=== PATIENT | male | born 1975 | race Caucasian/White ===

== ENCOUNTER 2019-02-16 15:15 | Emergency (ER) | payer OTHER, SELFPAY ==
[2019-02-16 15:21] VITALS: BP 156/97; PULSE 100; RESP 18; TEMP 37.6; O2SAT 95; BMI 31.6
--- NOTE | 2019-02-16 15:37 | DI.RAD.S_ITS ---
PROCEDURE: XR CHEST 1V INDICATIONS: chest pain TECHNIQUE: One view of the chest was acquired. COMPARISON: None. FINDINGS: Surgical changes and devices: None. Lungs and pleura: An incomplete inspiratory result is noted, causing a crowded appearance to the lung markings. No focal infiltrates are seen. There is blunting of the costophrenic angles seen. Mild, streaky opacities are seen at the lung bases. Mediastinum: Mediastinal contours appear normal. Heart size is normal. Bones and chest wall: No suspicious bony lesions. Overlying soft tissues appear unremarkable. IMPRESSION: Low lung volumes, with likely atelectasis at the lung bases. Dictated by: Gerson Curry M.D. on 02/16/2019 at 15:08 Approved by: Gerson Curry M.D. on 02/16/2019 at 15:09
[2019-02-16 15:52] LABS: Prothrombin Time 12.1 SECONDS (10.1-12.7)
[2019-02-16 15:53] LABS: Add Manual Diff / Slide Review NO; Basophils Absolute Auto 0 /uL (0-100); Basophils Percent Auto 0.3 % (0-2); Eosinophils Absolute Auto 0 /uL (0-450); Eosinophils Percent Auto 0.5 % (2-4); Hematocrit 43.9 % (41-53); Hemoglobin 15.1 g/dL (13.5-17.5); Lymphocytes Absolute Auto 1100 /uL (1100-4500); Lymphocytes Percent Auto 12.8 % (25-40); Mean Corpuscular HGB Conc 34.3 % (30-36); Mean Corpuscular Hemoglobin 28.1 PG (26-34); Mean Corpuscular Volume 81.9 fL (80-100); Monocytes Absolute Auto 800 /uL (0-900); Monocytes Percent Auto 9.9 % (3-14); Neutrophils Absolute Auto 6400 /uL (1500-7000); Neutrophils Percent Auto 76.5 % (50-75); Platelet Count 170 X10^3/uL (150-400); Red Blood Cell Count 5.36 X10^6/uL (4.5-5.9); Red Cell Distribution Width 12.6 % (11.6-14.8); White Blood Cell Count 8.4 X10^3/uL (4.5-11.0)
[2019-02-16 15:54] LABS: PTT Partial Thromboplastin Tim 31 SECONDS (26.4-36.2)
[2019-02-16 16:00] LABS: Alanine Aminotransferase 32 IU/L (21-72); Albumin 4.1 g/dL (3.5-5.0); Albumin Globulin Ratio 1.1 (1.0-2.8); Alkaline Phosphatase 98 U/L (38-126); Aspartate Aminotransferase 25 IU/L (17-59); Bilirubin Total 0.7 mg/dL (0.2-1.3); Blood Urea Nitrogen 11 mg/dL (9-20); Calcium 9.4 mg/dL (8.4-10.2); Carbon Dioxide 31 mmol/L (22-32); Chloride 100 mmol/L (98-107); Creatine Kinase 58 U/L (55-170); Estimated Glomerular Filt Rate > 60.0 mL/min (>60); Globulin 3.9 g/dL (1.7-4.1); Glucose 128 mg/dL (70-100); HEMOLYSIS < 15 (0-50); Lipase 79 U/L (23-300); Potassium 3.4 mmol/L (3.4-5.1); Sodium 138 mmol/L (137-145)
--- NOTE | 2019-02-16 16:08 | DI.RAD.S_ITS ---
PROCEDURE: XR RIBS LT 2V INDICATIONS: Left rib pain with palp, px on inhalation TECHNIQUE: 3 views of the left ribs were acquired. COMPARISON: [facility], CR, XR CHEST 1V, 02/16/2019, 15:46. FINDINGS: Surgical changes and devices: None. Bones and chest wall: No fractures or dislocations. No suspicious bony lesions. Overlying soft tissues appear unremarkable. Lungs and pleura: The visualized lung appears clear. No pleural effusions or pneumothorax are visible. IMPRESSION: No displaced rib fractures are seen. Negative for pneumothorax. Dictated by: Gerson Curry M.D. on 02/16/2019 at 15:58 Approved by: Gerson Curry M.D. on 02/16/2019 at 15:59
[2019-02-16 16:12] LABS: Troponin I < 0.012 ng/mL (0.01-0.034)
[2019-02-16 16:14] VITALS: BP 134/82; PULSE 93; RESP 16; O2SAT 94
--- NOTE | 2019-02-16 16:15 | ED.CHESTPAIN ---
HPI - Chest Pain <IMMANUEL Osman - Last Filed: 02/16/19 21:44> General Chief Complaint: Chest Pain Stated Complaint: poss broken ribs/sob Time Seen by Provider: 02/16/19 15:43 Source: patient Mode of arrival: ambulatory Limitations: no limitations History of Present Illness HPI narrative: 43-year-old healthy male presents emergency department today complaining of a left lower rib pain. He states the pain is a sharp stabbing 10/10 pain that is worse with deep inhalation, coughing, or moving. Patient reports that 3 days ago he believes that he got food poisoning from coffee Creamer, he states he was finally vomiting for a few hours and developed a fever of 102 F. After this, his symptoms resolved but he noticed that he had chest soreness which developed into sharp pain that he presents to the emergency department with today. He states his fever has decreased and has been consistently around 99 F for the past few days. He denies any dizziness, syncope, chest pressure, shortness of breath, abdominal pain, nausea, vomiting, diarrhea, or known trauma. Patient denies IV drug use. Related Data Previous Rx's Medication Instructions Recorded methocarbamol 500 mg PO TID #10 tab 02/16/19 Allergies Allergy/AdvReac Type Severity Reaction Status Date / Time codeine Allergy Verified 02/16/19 15:21 Review of Systems <IMMANUEL Osman - Last Filed: 02/16/19 21:44> Review of Systems Narrative: REVIEW OF SYSTEMS: GENERAL: Reports past fever, see HPI. HENT: No head trauma, hearing loss or sore throat. EYES: No loss of vision, double vision, eye pain, or irritation. CARDIOVASCULAR: Reports left-sided rib pain, see HPI. RESPIRATORY: No shortness of breath or cough. GASTROINTESTINAL: No reports nausea and vomiting a few days ago, see HPI. GENITOURINARY: No flank pain or dysuria. MUSCULOSKELETAL: No pain, weakness, or deformities. INTEGUMENTARY: No rash, lesions, or pruritus. NEURO: No numbness, tingling, memory loss, or confusion. PSYCH: No behavior or mood changes. PFSH <IMMANUEL Osman - Last Filed: 02/16/19 21:44> Medical History No significant medical problems (Acute) Social History Smoking Status: Never smoker Social History Smoking Status: Never smoker Exam <IMMANUEL Osman - Last Filed: 02/16/19 21:44> Initial Vital Signs Initial Vital Signs: Vital Signs Temperature 99.6 F 02/16/19 15:21 Pulse Rate 100 H 02/16/19 15:21 Respiratory Rate 18 02/16/19 15:21 Blood Pressure 156/97 H 02/16/19 15:21 Pulse Oximetry 95 02/16/19 15:21 PHYSICAL EXAMINATION: GENERAL: Well groomed, alert, and cooperative. Answers questions promptly and appropriately. Vital signs noted. HENT: Normocephalic, atraumatic. Ear canals patent. Oral mucosa is pink and moist. EYES: Conjunctiva pink, sclera white, no periorbital swelling. NECK: No cervical spinal tenderness. Full range of motion. CHEST: Normal to inspection and without deformities. Significant tenderness produced with palpation of lower left ribs both anterior and posteriorly. CARDIOVASCULAR: S1 and S2 sounds normal. Regular rate and rhythm, no murmurs, clicks, or bruits. No pedal edema. RESPIRATORY: Normal respiratory rate, trachea midline, airway patent. No stridor, nasal flaring or accessory muscle use. Lungs are clear in all silva without wheeze, rhonchi, or crackles. GASTROINTESTINAL: Bowel sounds normoactive. Abdomen is soft and non-tender. No organomegaly. MUSCULOSKELETAL: Normal gait and coordination. Equal tone and mass bilaterally. No spinal tenderness. EXTREMITIES: CMS intact. Moves all extremities. SKIN: Warm, dry, soft, appropriate color for ethnicity. No lesions, rashes, or wounds. NEURO: Alert and Oriented X 3. Good coordination. No ataxia, or sensory deficits, or cognitive issues. PSYCH: Appropriate affect and mood. <Heladio Leigh DO - Last Filed: 02/17/19 07:21> Initial Vital Signs Initial Vital Signs: Vital Signs Temperature 99.6 F 02/16/19 15:21 Pulse Rate 100 H 02/16/19 15:21 Respiratory Rate 18 02/16/19 15:21 Blood Pressure 156/97 H 02/16/19 15:21 Pulse Oximetry 95 02/16/19 15:21 Course <Luh IMMANUEL Nichols - Last Filed: 02/16/19 21:44> Course Course Narrative: Patient was given Toradol for pain, he reported he felt slightly better after administration of medication but the pain was still significant. Orders Ordered: Discontinued Medications Diazepam (Valium) 5 mg IV NOW ONE Stop: 02/16/19 17:15 Last Admin: 02/16/19 17:23 Dose: 5 mg Documented by: KASSIE Sodium Chloride (Normal Saline 0.9%) 1,000 mls @ 1,000 mls/hr IV BOLUS ONE Stop: 02/16/19 17:07 Last Infusion: 02/16/19 17:59 Dose: 0 mls/hr Documented by: Admin: 02/16/19 16:56 Dose: 1,000 mls/hr Documented by: KASSIE Ketorolac Tromethamine (Toradol) 30 mg IV NOW ONE Stop: 02/16/19 16:09 Last Admin: 02/16/19 16:56 Dose: 30 mg Documented by: KASSIE Consultations Consultation #1: Patient staffed with Dr. Leigh. Vital Signs Vital signs: Vital Signs - 8 hr 02/16/19 15:21 02/16/19 16:14 02/16/19 17:03 Temperature 99.6 F Pulse Rate 100 H 93 H 98 H Respiratory Rate 18 16 20 Blood Pressure 156/97 H Blood Pressure [Left Arm] 134/82 136/81 Pulse Oximetry 95 94 94 02/16/19 17:56 Temperature Pulse Rate 93 H Respiratory Rate 18 Blood Pressure Blood Pressure [Left Arm] 130/78 Pulse Oximetry 98 <Heladio Leigh DO - Last Filed: 02/17/19 07:21> Orders Ordered: Discontinued Medications Diazepam (Valium) 5 mg IV NOW ONE Stop: 02/16/19 17:15 Last Admin: 02/16/19 17:23 Dose: 5 mg Documented by: KASSIE Sodium Chloride (Normal Saline 0.9%) 1,000 mls @ 1,000 mls/hr IV BOLUS ONE Stop: 02/16/19 17:07 Last Infusion: 02/16/19 17:59 Dose: 0 mls/hr Documented by: Admin: 02/16/19 16:56 Dose: 1,000 mls/hr Documented by: KASSIE Ketorolac Tromethamine (Toradol) 30 mg IV NOW ONE Stop: 02/16/19 16:09 Last Admin: 02/16/19 16:56 Dose: 30 mg Documented by: KASSIE Vital Signs Vital signs: Vital Signs - 8 hr 02/16/19 15:21 02/16/19 16:14 02/16/19 17:03 Temperature 99.6 F Pulse Rate 100 H 93 H 98 H Respiratory Rate 18 16 20 Blood Pressure 156/97 H Blood Pressure [Left Arm] 134/82 136/81 Pulse Oximetry 95 94 94 02/16/19 17:56 Temperature Pulse Rate 93 H Respiratory Rate 18 Blood Pressure Blood Pressure [Left Arm] 130/78 Pulse Oximetry 98 MDM - Chest Pain <IMMANUEL Osman - Last Filed: 02/16/19 21:44> Medical Records Data Attestation: I reviewed the patient's medical records. Lab Data Attestation: I reviewed the patient's lab results. Result diagrams: 02/16/19 15:33 02/16/19 15:33 Labs: Lab Results 02/16/19 02/16/19 02/16/19 Range/Units 15:33 15:33 15:33 WBC 8.4 (4.5-11.0) X10^3/uL RBC 5.36 (4.5-5.9) X10^6/uL Hgb 15.1 (13.5-17.5) g/dL Hct 43.9 (41-53) % MCV 81.9 (80-100) fL MCH 28.1 (26-34) PG MCHC 34.3 (30-36) % RDW 12.6 (11.6-14.8) % Plt Count 170 (150-400) X10^3/uL Neut % (Auto) 76.5 H (50-75) % Lymph % (Auto) 12.8 L (25-40) % [place] % (Auto) 9.9 (3-14) % Eos % (Auto) 0.5 L (2-4) % Baso % (Auto) 0.3 (0-2) % Neut # (Auto) 6400 (2424-1389) /uL Lymph # (Auto) 1100 (6495-1408) /uL [place] # (Auto) 800 (0-900) /uL Eos # (Auto) 0 (0-450) /uL Baso # (Auto) 0 (0-100) /uL PT 12.1 (10.1-12.7) SECONDS INR 1.0 (0.9-1.3) APTT 31 (26.4-36.2) SECONDS Sodium 138 (137-145) mmol/L Potassium 3.4 (3.4-5.1) mmol/L Chloride 100 (98-107) mmol/L Carbon Dioxide 31 (22-32) mmol/L BUN 11 (9-20) mg/dL Creatinine 1.10 (0.66-1.25) mg/dL Estimated GFR > 60.0 (>60) mL/min BUN/Creatinine Ratio 10.0 (6-22) Glucose 128 H (70-100) mg/dL Calcium 9.4 (8.4-10.2) mg/dL Total Bilirubin 0.7 (0.2-1.3) mg/dL AST 25 (17-59) IU/L ALT 32 (21-72) IU/L Alkaline Phosphatase 98 (38-126) U/L Total Creatine Kinase 58 (55-170) U/L CK-MB (CK-2) TNP CK-MB (CK-2) Rel Index TNP Troponin I < 0.012 (0.01-0.034) ng/mL Total Protein 8.0 (6.3-8.2) g/dL Albumin 4.1 (3.5-5.0) g/dL Globulin 3.9 (1.7-4.1) g/dL Albumin/Globulin Ratio 1.1 (1.0-2.8) Lipase 79 (23-300) U/L Imaging Data Chest x-ray: Radiologist's impression: [facility] [address] [place] [id number] XRay Report Signed Patient: Felicia John#: [id number] : 1975Acct:[id number] Age/Sex: 43 / MDate of Service: 02/16/19 Loc: ED Accession Number: [id number] Procedure: XR chest 1V Ordering Provider: Heladio Leigh D.O. PROCEDURE: XR CHEST 1V INDICATIONS: chest pain TECHNIQUE: One view of the chest was acquired. COMPARISON: None. FINDINGS: Surgical changes and devices: None. Lungs and pleura: An incomplete inspiratory result is noted, causing a crowded appearance to the lung markings. No focal infiltrates are seen. There is blunting of the costophrenic angles seen. Mild, streaky opacities are seen at the lung bases. Mediastinum: Mediastinal contours appear normal. Heart size is normal. Bones and chest wall: No suspicious bony lesions. Overlying soft tissues appear unremarkable. IMPRESSION: Low lung volumes, with likely atelectasis at the lung bases. Dictated by: Gerson Curry M.D. on 02/16/2019 at 15:08 Approved by: Gerson Curry M.D. on 02/16/2019 at 1 Rib XR: My impression: [address] [address] XRay Report Signed Patient: Felicia John#: [id number] : 1975Acct:[id number] Age/Sex: 43 / MDate of Service: 02/16/19 Loc: ED Accession Number: [id number] Procedure: XR ribs LT 2V Ordering Provider: Luh Nichols PROCEDURE: XR RIBS LT 2V INDICATIONS: Left rib pain with palp, px on inhalation TECHNIQUE: 3 views of the left ribs were acquired. [facility], 15:46. FINDINGS: Surgical changes and devices: None. Bones and chest wall: No fractures or dislocations. No suspicious bony lesions. Overlying soft tissues appear unremarkable. Lungs and pleura: The visualized lung appears clear. No pleural effusions or pneumothorax are visible. IMPRESSION: No displaced rib fractures are seen. Negative for pneumothorax. Dictated by: Gerson Curry M.D. on 02/16/2019 at 15:58 Approved by: Gerson Curry M.D. on 02/16/2019 at 15:59 ECG Data Interpretation: Normal sinus rhythm, rate 92, [place] interval 143, QTC 401. No ectopy noted. No ST elevation or ST depression. T-wave inversion noted in lead 3. EKG also reviewed by Dr. Leigh. MDM Narrative Medical decision making narrative: Differential include muscle strain (most likely due to history of vomiting, reassuring lab, unremarkable EKG, chest pain does not seem of cardiac origin, pain is reproducible with palpation and deep breaths, negative x-ray for fracture or pneumonia, slight improvement of pain with administration of Toradol), rib fracture (less likely due to lack of trauma, negative x-ray), acute coronary syndrome (less likely due to negative troponin, lack of chest pressure, reassuring EKG), endocarditis (less likely due to lack of IV drug use, lack of very high fever upon presentation, lack of substernal chest pain), or pericarditis (lack of substernal chest pain, a white cell count). Strict return precautions given and follow-up instructions discussed. <Heladio Leigh DO - Last Filed: 02/17/19 07:21> Lab Data Labs: Lab Results 02/16/19 02/16/19 02/16/19 Range/Units 15:33 15:33 15:33 WBC 8.4 (4.5-11.0) X10^3/uL RBC 5.36 (4.5-5.9) X10^6/uL Hgb 15.1 (13.5-17.5) g/dL Hct 43.9 (41-53) % MCV 81.9 (80-100) fL MCH 28.1 (26-34) PG MCHC 34.3 (30-36) % RDW 12.6 (11.6-14.8) % Plt Count 170 (150-400) X10^3/uL Neut % (Auto) 76.5 H (50-75) % Lymph % (Auto) 12.8 L (25-40) % [place] % (Auto) 9.9 (3-14) % Eos % (Auto) 0.5 L (2-4) % Baso % (Auto) 0.3 (0-2) % Neut # (Auto) 6400 (3028-1408) /uL Lymph # (Auto) 1100 (1979-2207) /uL [place] # (Auto) 800 (0-900) /uL Eos # (Auto) 0 (0-450) /uL Baso # (Auto) 0 (0-100) /uL PT 12.1 (10.1-12.7) SECONDS INR 1.0 (0.9-1.3) APTT 31 (26.4-36.2) SECONDS Sodium 138 (137-145) mmol/L Potassium 3.4 (3.4-5.1) mmol/L Chloride 100 (98-107) mmol/L Carbon Dioxide 31 (22-32) mmol/L BUN 11 (9-20) mg/dL Creatinine 1.10 (0.66-1.25) mg/dL Estimated GFR > 60.0 (>60) mL/min BUN/Creatinine Ratio 10.0 (6-22) Glucose 128 H (70-100) mg/dL Calcium 9.4 (8.4-10.2) mg/dL Total Bilirubin 0.7 (0.2-1.3) mg/dL AST 25 (17-59) IU/L ALT 32 (21-72) IU/L Alkaline Phosphatase 98 (38-126) U/L Total Creatine Kinase 58 (55-170) U/L CK-MB (CK-2) TNP CK-MB (CK-2) Rel Index TNP Troponin I < 0.012 (0.01-0.034) ng/mL Total Protein 8.0 (6.3-8.2) g/dL Albumin 4.1 (3.5-5.0) g/dL Globulin 3.9 (1.7-4.1) g/dL Albumin/Globulin Ratio 1.1 (1.0-2.8) Lipase 79 (23-300) U/L Discharge Plan Departure Patient Disposition: Home Clinical Impression: Pain in rib, Muscle spasm Discharge Date/Time: 02/16/19 17:58 Instructions: DI for Muscle Spasm Activity Restrictions/Additional Instructions: Thank you for entrusting me with your care today. As discussed, her lab work was negative for any concerning findings. Your x-rays were negative for any fractures. It is possible your symptoms may be caused by muscle spasms and/or a muscle strain. I prescribed you a muscle relaxer, do not drive with this medication as it may cause sedation. You may take Tylenol or ibuprofen for pain with this. Please follow up with your primary care provider in the next week for re-evaluation. Return to the emergency department if he develops changes in chest pain, severe shortness of breath, syncope, uncontrollable vomiting, high fevers, or worsening symptoms. Prescriptions: New methocarbamol 500 mg tablet 500 mg PO TID Qty: 10 RF: 0 <Heladio Leigh DO - Last Filed: 02/17/19 07:21> Sign Out Provider Sign Out Attestation: I was available for consultation during this patient's emergency department encounter
[2019-02-16] MEDS: SODIUM CHLORIDE 0.9% 1,000 ML 1000 ML IV (16:56)
[2019-02-16] MEDS: KETOROLAC 60 MG/2 ML VIAL 30 MG IV (16:56)
[2019-02-16 17:03] VITALS: BP 136/81; PULSE 98; RESP 20; O2SAT 94
[2019-02-16] MEDS: diazePAM 10 MG/2 ML SYRINGE 5 MG IV (17:23)
[2019-02-16 17:56] VITALS: BP 130/78; PULSE 93; RESP 18; O2SAT 98
== END 2019-02-16 17:58 | disposition home or self-care (01) ==
PROVIDERS: Emergency Medicine; Emergency Provider Nurse Practitioner
DX: R07.81 Pleurodynia (principal); M62.838 Other muscle spasm
CPT/HCPCS: 36415; 36591; 71045; 71100; 80053; 82550; 83690; 84484; 85025; 85610; 85730; 93005; 93041; 96361; 96374; 96375; 99284; 99285; J1885; J3360

== ENCOUNTER 2019-02-18 12:35 | Emergency (ER) | payer OTHER, SELFPAY ==
[2019-02-18 12:41] VITALS: BP 165/106; PULSE 86; RESP 17; TEMP 37.3; O2SAT 95; BMI 31.6
--- NOTE | 2019-02-18 12:43 | ED_ITS ---
HPI - Fever General Chief Complaint: Fever Stated Complaint: still has symptoms from ER visit on sunday Time Seen by Provider: 02/18/19 12:37 Source: patient Mode of arrival: ambulatory Limitations: no limitations History of Present Illness HPI Narrative: 43-year-old male here for evaluation of continued left-sided chest discomfort causing them to not be able to take big deep breaths. He also complains of continued fevers. He was seen here in the emergency department a couple days ago for similar symptoms was sent home with muscle relaxation which he states has helped the spasms. Denies any diarrhea. All the symptoms started a couple days ago when he felt like he drank some bad Creamer in his coffee. Several hours later he developed violent vomiting. Has had 1 episode of diarrhea but nothing since then. He states that since this time he has had pinpoint left-sided chest discomfort Related Data Previous Rx's Medication Instructions Recorded methocarbamol 500 mg PO TID #10 tab 02/16/19 azithromycin See Rx Instructions .ROUTE 02/18/19 .COMPLEX #6 tab hydrocodone-acetaminophen [[place]] 1 tab PO Q4-6H PRN #14 tab 02/18/19 Allergies Allergy/AdvReac Type Severity Reaction Status Date / Time codeine Allergy Verified 02/18/19 12:41 Review of Systems Constitutional Constitutional: Reports fever(s) and Denies headache(s) ENT Ears, Nose, Mouth, and Throat: Denies headache(s) Cardiovascular Cardiovascular: Reports chest pain (Chest wall pain), Denies edema, Denies irregular heart rhythm, Denies palpitations and Reports dyspnea Respiratory Respiratory: Reports pain on inspiration and Reports dyspnea Gastrointestinal Gastrointestinal: Denies abdominal pain, Denies change in stool character, Denies nausea and Denies vomiting Integumentary/Breasts Skin/Breast: Denies lesions and Denies rash Neurologic Neurologic: Denies behavioral changes and Denies headache(s) Psychiatric Psychiatric: Denies behavioral changes Endocrine Endocrine: Denies palpitations Hematologic/Lymphatic Hematologic/Lymphatic: Denies easy bleeding and Denies easy bruising [facility] Medical History No significant medical problems (Acute) Social History Smoking Status: Never smoker Exam Initial Vital Signs Initial Vital Signs: Vital Signs Temperature 99.2 F 02/18/19 12:41 Pulse Rate 86 02/18/19 12:41 Respiratory Rate 17 02/18/19 12:41 Blood Pressure 165/106 H 02/18/19 12:41 Pulse Oximetry 95 02/18/19 12:41 Const General: cooperative, comfortable and well developed Orientation: alert and awake HENNE Head: normal to inspection and normocephalic Chest Chest: No crepitus and tenderness (Left-sided chest) Resp Effort & Inspection: normal respiratory effort Auscultation: clear to auscultation bilaterally Other: Decreased inspiratory effort Skin Lesions: no lesions Rashes: no rashes Neuro General: alert and awake Cognition: normal cognition Speech: speech normal Extrem General: normal to inspection and capillary refill normal Course Orders Ordered: ED Orders 02/18/19 12:55 XR chest 2V Stat 02/18/19 13:43 RT Consult Eval and Treat Now Vital Signs Vital signs: Vital Signs - 8 hr 02/18/19 12:41 02/18/19 13:53 Temperature 99.2 F Pulse Rate 86 79 Respiratory Rate 17 Blood Pressure 165/106 H Pulse Oximetry 95 96 MDM - Fever Imaging Data Chest x-ray: Radiologist's impression: [address] [address] XRay Report Signed Patient: Felicia John#: [id number] : 1975Acct:[id number] Age/Sex: 43 / MDate of Service: 02/18/19 Loc: ED Accession Number: [id number] Procedure: XR chest 2V Ordering Provider: Heladio Leigh D.O. PROCEDURE: XR CHEST 2V INDICATIONS: Fever and left-sided chest pain TECHNIQUE: 2 views of the chest were acquired. COMPARISON: [facility], , XR CHEST 1V, 02/16/2019, 15:46. FINDINGS: Surgical changes and devices: None. Lungs and pleura: Moderate bibasilar airspace opacity. Small bilateral pleural effusions. No pneumothorax. Mediastinum: Mediastinal contours are normal. Heart size is normal. Bones and chest wall: No suspicious bony abnormalities. Soft tissues appear unremarkable. IMPRESSION: Bibasilar pneumonia with small parapneumonic effusions. Dictated by: Suze Ferrell M.D. on 02/18/2019 at 13:22 Approved by: Suze Ferrell M.D. on 02/18/2019 at 13:23 MDM Narrative Medical decision making narrative: Patient does have pinpoint left-sided chest discomfort. I do suspect this is either costochondritis versus an intercostal muscle strain. There is also a small concern for a rib fracture given his violent vomiting however rib series done several days ago shows no signs of this. He was febrile. He is not in respiratory distress but does have a decreased inspiratory effort. His chest x-ray today is concerning for pneumonia. This does fit his clinical presentation. Will send home with antibiotics. Also sent home with pain medication to help him avoid splinting. He was given return precautions and follow-up instructions. He expressed understanding and agreement with plan. Discharge Plan Departure Patient Disposition: Home Clinical Impression: Pneumonia Qualifiers: Pneumonia type: due to unspecified organism Laterality: bilateral Lung location: lower lobe of lung Qualified Code(s): J18.1 - Lobar pneumonia, unspecified organism Instructions: DI for Pneumonia -- Adult Activity Restrictions/Additional Instructions: Take all of the medications as directed. Be sure to continue to take deep breaths like you were instructed. Contact your primary provider for a follow- up. Return to the emergency department for any new or worsening symptoms Prescriptions: New azithromycin 250 mg tablet See Rx Instructions .ROUTE .COMPLEX Qty: 6 RF: 0 hydrocodone-acetaminophen [[place]] 5-325 mg tablet 1 tab PO Q4-6H PRN (Reason: pain) Qty: 14 RF: 0 No Action methocarbamol 500 mg tablet 500 mg PO TID Qty: 10 RF: 0
--- NOTE | 2019-02-18 12:55 | DI.RAD.S_ITS ---
PROCEDURE: XR CHEST 2V INDICATIONS: Fever and left-sided chest pain TECHNIQUE: 2 views of the chest were acquired. COMPARISON: [facility], CR, XR CHEST 1V, 02/16/2019, 15:46. FINDINGS: Surgical changes and devices: None. Lungs and pleura: Moderate bibasilar airspace opacity. Small bilateral pleural effusions. No pneumothorax. Mediastinum: Mediastinal contours are normal. Heart size is normal. Bones and chest wall: No suspicious bony abnormalities. Soft tissues appear unremarkable. IMPRESSION: Bibasilar pneumonia with small parapneumonic effusions. Dictated by: Suze Ferrell M.D. on 02/18/2019 at 13:22 Approved by: Suze Ferrell M.D. on 02/18/2019 at 13:23
[2019-02-18 13:30] VITALS: BP 138/96; PULSE 79; RESP 16; O2SAT 96
[2019-02-18 13:53] VITALS: PULSE 79; O2SAT 96
[2019-02-18 14:04] VITALS: BP 146/96; PULSE 80; RESP 13
--- NOTE | 2019-02-18 14:04 | PC.NURSE ---
rt is instructions
== END 2019-02-18 14:05 | disposition home or self-care (01) ==
PROVIDERS: Emergency Provider Emergency Medicine
DX: J18.1 Lobar pneumonia, unspecified organism (principal)
CPT/HCPCS: 71046; 99282; 99283

== ENCOUNTER 2019-02-21 10:42 | Emergency (ER) | payer OTHER, SELFPAY ==
[2019-02-21 10:51] VITALS: BP 163/101; PULSE 75; RESP 24; TEMP 36.9; O2SAT 93; BMI 32.3
--- NOTE | 2019-02-21 11:15 | ED_ITS ---
HPI - Chest Pain <IMMANUEL Osman - Last Filed: 02/21/19 23:03> General Chief Complaint: Chest Pain Stated Complaint: Rib cage pain Time Seen by Provider: 02/21/19 11:00 Source: patient Mode of arrival: ambulatory Limitations: no limitations History of Present Illness HPI narrative: 43-year-old male who was recently seen in the emergency department on 02/16 for rib pain after getting when he perceived to be food poisoning and vomiting once, at that point his rib x-rays were negative and his chest x-ray was negative for pneumonia. He returned on 02/18 for re-evaluation and his chest x-ray showed pneumonia. He was given azithromycin and an incentive spirometer. Patient returns today stating that he is doing better but ran out of his muscle relaxers and is having and intermittent muscle spasms in his ribs at night and when he takes a deep breath. He states he has been taking ibuprofen, the spasms are a 5/10 sharp stabbing pain and that is better with rest and worse with movement. He states the methocarbamol helped. Patient denies any fevers the past few days, denies vomiting, abdominal pain, diarrhea, shortness of breath, cough this time (states he was coughing a lot on 02/18 and 02/19), nasal congestion, sore throat, body aches, malaise, dizziness, or syncope. Related Data Previous Rx's Medication Instructions Recorded methocarbamol 500 mg PO TID #10 tab 02/16/19 azithromycin See Rx Instructions .ROUTE 02/18/19 .COMPLEX #6 tab hydrocodone-acetaminophen [[place]] 1 tab PO Q4-6H PRN #14 tab 02/18/19 amoxicillin-pot clavulanate 1 tab PO BID 7 Days #14 tab 02/21/19 [Augmentin] hydrocodone-acetaminophen [[place]] 2 tab PO Q6H 7 Days #20 tab 02/21/19 hydroxyzine HCl 25 mg PO BEDTIME #14 tab 02/21/19 Allergies Allergy/AdvReac Type Severity Reaction Status Date / Time codeine Allergy Verified 02/18/19 12:41 Review of Systems <IMMANUEL Osman - Last Filed: 02/21/19 23:03> Review of Systems Narrative: REVIEW OF SYSTEMS: GENERAL: Denies fever or chills. HENT: No head trauma, hearing loss or sore throat. EYES: No loss of vision, double vision, eye pain, or irritation. CARDIOVASCULAR: Complains for pain, see HPI. RESPIRATORY: Complains of pain when he is taking a deep breath, see HPI. GASTROINTESTINAL: No nausea, vomiting, diarrhea, or constipation. GENITOURINARY: No flank pain or dysuria. MUSCULOSKELETAL: No pain, weakness, or deformities. INTEGUMENTARY: No rash, lesions, or pruritus. NEURO: No numbness, tingling, memory loss, or confusion. PSYCH: No behavior or mood changes. PFSH <IMMANUEL Osman - Last Filed: 02/21/19 23:03> Medical History No significant medical problems (Acute) Social History Smoking Status: Never smoker Social History Smoking Status: Never smoker Exam <IMMANUEL Osman - Last Filed: 02/21/19 23:03> Initial Vital Signs Initial Vital Signs: Vital Signs Temperature 98.4 F 02/21/19 10:51 Pulse Rate 75 02/21/19 10:51 Respiratory Rate 24 02/21/19 10:51 Blood Pressure 163/101 H 02/21/19 10:51 Pulse Oximetry 93 02/21/19 10:51 PHYSICAL EXAMINATION: GENERAL: Well groomed, alert, and cooperative. Answers questions promptly and appropriately. Vital signs noted. HENT: Normocephalic, atraumatic. Ear canals patent. Oral mucosa is pink and moist. EYES: Conjunctiva pink, sclera white, no periorbital swelling. CHEST: Normal to inspection and without deformities. CARDIOVASCULAR: S1 and S2 sounds normal. Regular rate and rhythm, no murmurs, clicks, or bruits. No pedal edema. RESPIRATORY: Normal respiratory rate, trachea midline, airway patent. No stridor, nasal flaring or accessory muscle use. Lung sounds decreased at bases, wheezing noted to left lower lobe. No crackles auscultated. Decreased wheezing after DuoNeb treatment. Patient noted to have oxygen saturation as low as 95% and is highest in present after albuterol treatment. GASTROINTESTINAL: Bowel sounds normoactive. Abdomen is soft and non-tender. No organomegaly. MUSCULOSKELETAL: Left rib fire tender to palpation. Normal gait and coordination. Equal tone and mass bilaterally. EXTREMITIES: CMS intact. Moves all extremities. SKIN: Warm, dry, soft, appropriate color for ethnicity. No lesions, rashes, or wounds. NEURO: Alert and Oriented X 3. Good coordination. No ataxia, or sensory deficits, or cognitive issues. PSYCH: Appropriate affect and mood. <Skylar Franco DO - Last Filed: 02/25/19 05:55> Initial Vital Signs Initial Vital Signs: Vital Signs Temperature 98.4 F 02/21/19 10:51 Pulse Rate 75 02/21/19 10:51 Respiratory Rate 24 02/21/19 10:51 Blood Pressure 163/101 H 02/21/19 10:51 Pulse Oximetry 93 02/21/19 10:51 Course <IMMANUEL Osman - Last Filed: 02/21/19 23:03> Course Course Narrative: Since this was the 3rd time patient presented with the same complaint, his chest x-ray was repeated but showed bibasilar densities that were inconclusive. Due to this finding and his continued pain, a CT angio was ordered, patient agreed with this plan. Orders Ordered: Discontinued Medications Hydrocodone Bitart/Acetaminophen ([place] 5/325) 2 tab PO NOW ONE Stop: 02/21/19 11:30 Last Admin: 02/21/19 11:59 Dose: 2 tab Documented by: BRAYDEN Albuterol/Ipratropium (Duoneb) 3 ml INH NOW ONE Stop: 02/21/19 11:14 Last Admin: 02/21/19 11:45 Dose: 3 ml Documented by: JELANI Sodium Chloride (Normal Saline 0.9%) 1,000 mls @ 1,000 mls/hr IV BOLUS ONE Stop: 02/21/19 13:29 Last Infusion: 02/21/19 14:20 Dose: 0 mls/hr Documented by: Admin: 02/21/19 13:12 Dose: 1,000 mls/hr Documented by: BRAYDEN Vital Signs Vital signs: Vital Signs - 8 hr 02/21/19 10:51 02/21/19 11:28 02/21/19 11:47 Temperature 98.4 F Pulse Rate 75 78 76 Respiratory Rate 24 26 H 20 Blood Pressure 163/101 H Blood Pressure [Right Arm] 139/117 H Pulse Oximetry 93 97 97 02/21/19 12:32 Temperature Pulse Rate 79 Respiratory Rate 22 Blood Pressure Blood Pressure [Right Arm] 141/92 H Pulse Oximetry 94 <Skylar Franco DO - Last Filed: 02/25/19 05:55> Orders Ordered: Discontinued Medications Hydrocodone Bitart/Acetaminophen ([place] 5/325) 2 tab PO NOW ONE Stop: 02/21/19 11:30 Last Admin: 02/21/19 11:59 Dose: 2 tab Documented by: BRAYDEN Albuterol/Ipratropium (Duoneb) 3 ml INH NOW ONE Stop: 02/21/19 11:14 Last Admin: 02/21/19 11:45 Dose: 3 ml Documented by: JELANI Sodium Chloride (Normal Saline 0.9%) 1,000 mls @ 1,000 mls/hr IV BOLUS ONE Stop: 02/21/19 13:29 Last Infusion: 02/21/19 14:20 Dose: 0 mls/hr Documented by: Admin: 02/21/19 13:12 Dose: 1,000 mls/hr Documented by: BRAYDEN Vital Signs Vital signs: Vital Signs - 8 hr 02/21/19 10:51 02/21/19 11:28 02/21/19 11:47 Temperature 98.4 F Pulse Rate 75 78 76 Respiratory Rate 24 26 H 20 Blood Pressure 163/101 H Blood Pressure [Right Arm] 139/117 H Pulse Oximetry 93 97 97 02/21/19 12:32 Temperature Pulse Rate 79 Respiratory Rate 22 Blood Pressure Blood Pressure [Right Arm] 141/92 H Pulse Oximetry 94 MDM - Chest Pain <IMMANUEL Osman - Last Filed: 02/21/19 23:03> Medical Records Data Attestation: I reviewed the patient's medical records. Lab Data Attestation: I reviewed the patient's lab results. Result diagrams: 02/21/19 11:47 02/21/19 11:47 Labs: Lab Results 02/21/19 02/21/19 Range/Units 11:47 11:47 WBC 9.2 (4.5-11.0) X10^3/uL RBC 4.81 (4.5-5.9) X10^6/uL Hgb 13.7 (13.5-17.5) g/dL Hct 38.9 L (41-53) % MCV 80.8 (80-100) fL MCH 28.4 (26-34) PG MCHC 35.2 (30-36) % RDW 12.7 (11.6-14.8) % Plt Count 311 (150-400) X10^3/uL Neut % (Auto) 67.5 (50-75) % Lymph % (Auto) 21.9 L (25-40) % [place] % (Auto) 7.8 (3-14) % Eos % (Auto) 2.0 (2-4) % Baso % (Auto) 0.8 (0-2) % Neut # (Auto) 6200 (5561-2965) /uL Lymph # (Auto) 2000 (3008-7011) /uL [place] # (Auto) 700 (0-900) /uL Eos # (Auto) 200 (0-450) /uL Baso # (Auto) 100 (0-100) /uL Sodium 139 (137-145) mmol/L Potassium 4.1 (3.4-5.1) mmol/L Chloride 103 (98-107) mmol/L Carbon Dioxide 26 (22-32) mmol/L BUN 17 (9-20) mg/dL Creatinine 0.90 (0.66-1.25) mg/dL Estimated GFR > 60.0 (>60) mL/min BUN/Creatinine Ratio 18.9 (6-22) Glucose 93 (70-100) mg/dL Calcium 9.5 (8.4-10.2) mg/dL Total Bilirubin 0.4 (0.2-1.3) mg/dL AST 23 (17-59) IU/L ALT 33 (21-72) IU/L Alkaline Phosphatase 102 (38-126) U/L Total Creatine Kinase 38 L (55-170) U/L CK-MB (CK-2) TNP CK-MB (CK-2) Rel Index TNP Troponin I < 0.012 (0.01-0.034) ng/mL Total Protein 7.9 (6.3-8.2) g/dL Albumin 4.0 (3.5-5.0) g/dL Globulin 3.9 (1.7-4.1) g/dL Albumin/Globulin Ratio 1.0 (1.0-2.8) Imaging Data Chest XR: Radiologist's impression: [address] [address] XRay Report Signed Patient: Felicia John#: [id number] : 1975Acct:[id number] Age/Sex: 43 / MDate of Service: 02/21/19 Loc: ED Accession Number: [id number] Procedure: XR chest 2V Ordering Provider: Luh Nichols PROCEDURE: XR CHEST 2V INDICATIONS: Left chest pain, h/o of pneumonia. TECHNIQUE: 2 views of the chest were acquired. COMPARISON: [facility], , XR CHEST 2V, 02/18/2019, 13:01. FINDINGS: Surgical changes and devices: None. Lungs and pleura: Mild areas of increased density are identified at the lung bases, which have a similar appearance to the previous exam and may represent eventration of the diaphragm. No large effusion or pneumothorax is evident. Mediastinum: Mediastinal contours are normal. Heart size is normal. Bones and chest wall: No suspicious bony abnormalities. Soft tissues appear unremarkable. IMPRESSION: Unchanged bibasilar densities. Please consider CT of the chest for better characterization. Dictated by: Carmelo Sheldon M.D. on 02/21/2019 at 10:45 Approved by: Carmelo Sheldon M.D. on 02/21/2019 at 10:52 CT scan - chest: Radiologist's impression: [address] [address] [address] Scan Report Signed Patient: Felicia John#: [id number] : 1975Acct:[id number] Age/Sex: 43 / MDate of Service: 02/21/19 Loc: ED Accession Number: [id number] Procedure: CT angio chest PE protocol Ordering Provider: Luh Nichols PROCEDURE: CT ANGIO CHEST PE PROTOCOL INDICATIONS: SOB, Chest pain, Decreased O2, inconclusive XRs TECHNIQUE: After the administration of intravenous contrast, 2 mm thick sections acquired from the pulmonary apices to the posterior costophrenic angles. 3-dimensional maximum intensity projection (MIP) coronal and sagittal reformats were then acquired through the thorax. For radiation dose reduction, the following was used: automated exposure control, adjustment of mA and/or kV according to patient size. COMPARISON: None. FINDINGS: Image quality: Diagnostic. Pulmonary arteries: Pulmonary arteries are normal in size, and demonstrate no intraluminal filling defects to suggest central pulmonary embolism. Lungs and pleura: Bibasilar pulmonary consolidation is identified. There is a small left basilar pleural effusion. A 1.3 x 1.1 cm nodule is evident within the posterior left lower lobe (image 61, series 5). No pneumothorax is evident. Mediastinum: Heart size is normal, without pericardial effusion. No mediastinal or hilar adenopathy. Thoracic aorta is normal in caliber and enhancement. Esophagus is normal in caliber, without hiatal hernia. Bones and chest wall: No suspicious bony lesions. Ribs and thoracic spine a ppear intact throughout. Thyroid gland is not enlarged or adequately evaluated. No axillary or supraclavicular adenopathy. Abdomen: Visualized upper abdominal solid organs appear normal in the early arterial phase of enhancement. IMPRESSION: 1. No evidence of pulmonary emboli. 2. Bibasilar consolidation most likely represents a combination of atelectasis and pneumonia. 3. Small left-sided pleural effusion. 4. Left lower lobe pulmonary nodule. Six-month followup CT of the chest is recommended to evaluate for interval change. Dictated by: Carmelo Sheldon M.D. on 02/21/2019 at 11:59 Approved by: Carmelo Sheldon M.D. on 02/21/2019 at 12:07 ECG Data Interpretation: Normal sinus rhythm, 145, rate 76, QTC 412. No ST elevation or ST depression. T-wave inversion noted in lead 3 which is consistent with his other EKGs. No ectopy. EKG was also viewed by Dr. Franco. [facility] Narrative Medical decision making narrative: Findings are highly suggestive for aspiration pneumonia, antibiotics were switched to Augmentin which covers bacteria that occurs in aspiration pneumonia better than Augmentin for CAP. Patient was informed about nodule to long as as pleural effusion, patient instructed to follow up primary care provider. Less likely cardiac etiology (due to reproducible pain with palpation and deep breathing, unremarkable EKG), rib fracture (less likely due to lack of findings on CT), sepsis (lack of fever or elevated white blood cell count). Strict return precautions given and follow-up instructions discussed. <Skylar Lesliesumeet, DO - Last Filed: 02/25/19 05:55> Lab Data Labs: Lab Results 02/21/19 02/21/19 Range/Units 11:47 11:47 WBC 9.2 (4.5-11.0) X10^3/uL RBC 4.81 (4.5-5.9) X10^6/uL Hgb 13.7 (13.5-17.5) g/dL Hct 38.9 L (41-53) % MCV 80.8 (80-100) fL MCH 28.4 (26-34) PG MCHC 35.2 (30-36) % RDW 12.7 (11.6-14.8) % Plt Count 311 (150-400) X10^3/uL Neut % (Auto) 67.5 (50-75) % Lymph % (Auto) 21.9 L (25-40) % [place] % (Auto) 7.8 (3-14) % Eos % (Auto) 2.0 (2-4) % Baso % (Auto) 0.8 (0-2) % Neut # (Auto) 6200 (1862-5378) /uL Lymph # (Auto) 2000 (8144-7987) /uL [place] # (Auto) 700 (0-900) /uL Eos # (Auto) 200 (0-450) /uL Baso # (Auto) 100 (0-100) /uL Sodium 139 (137-145) mmol/L Potassium 4.1 (3.4-5.1) mmol/L Chloride 103 (98-107) mmol/L Carbon Dioxide 26 (22-32) mmol/L BUN 17 (9-20) mg/dL Creatinine 0.90 (0.66-1.25) mg/dL Estimated GFR > 60.0 (>60) mL/min BUN/Creatinine Ratio 18.9 (6-22) Glucose 93 (70-100) mg/dL Calcium 9.5 (8.4-10.2) mg/dL Total Bilirubin 0.4 (0.2-1.3) mg/dL AST 23 (17-59) IU/L ALT 33 (21-72) IU/L Alkaline Phosphatase 102 (38-126) U/L Total Creatine Kinase 38 L (55-170) U/L CK-MB (CK-2) TNP CK-MB (CK-2) Rel Index TNP Troponin I < 0.012 (0.01-0.034) ng/mL Total Protein 7.9 (6.3-8.2) g/dL Albumin 4.0 (3.5-5.0) g/dL Globulin 3.9 (1.7-4.1) g/dL Albumin/Globulin Ratio 1.0 (1.0-2.8) Discharge Plan Departure Patient Disposition: Home Clinical Impression: Pleural effusion, Lung nodule, Muscle spasm Aspiration pneumonia Qualifiers: Aspiration pneumonia type: due to gastric secretions Laterality: bilateral Lung location: unspecified part of lung Qualified Code(s): J69.0 - Pneumonitis due to inhalation of food and vomit Discharge Date/Time: 02/21/19 14:20 Instructions: DI for Aspiration Pneumonia Activity Restrictions/Additional Instructions: Thank you for entrusting me with your care today. As discussed, your CT showed that you still have pneumonia, there is a small amount fluid to the left side of heel on which should resolve spontaneously, and additionally have a small lung nodule noted on the left side. The nodule requires follow-up in at least 6 months for re-evaluation. Please see your primary care provider as soon as possible for re-evaluation. Please stopped taking azithromycin. I prescribed you medication, please take the antibiotic as directed, please do not take a narcotic and muscle relaxer together as this could decrease your breathing c ausing worsening outcomes. You may take ibuprofen with the hydrocodone, do not take Tylenol with this. Return to the emergency department if you develops very high fevers, uncontrollable vomiting, change in chest pain, or severe shortness of breath. Prescriptions: New amoxicillin-pot clavulanate [Augmentin] 875-125 mg tablet 1 tab PO BID 7 Days Qty: 14 RF: 0 hydrocodone-acetaminophen [[place]] 5-325 mg tablet 2 tab PO Q6H 7 Days Qty: 20 RF: 0 hydroxyzine HCl 25 mg tablet 25 mg PO BEDTIME Qty: 14 RF: 0 No Action azithromycin 250 mg tablet See Rx Instructions .ROUTE .COMPLEX Qty: 6 RF: 0 hydrocodone-acetaminophen [[place]] 5-325 mg tablet 1 tab PO Q4-6H PRN (Reason: pain) Qty: 14 RF: 0 methocarbamol 500 mg tablet 500 mg PO TID Qty: 10 RF: 0
--- NOTE | 2019-02-21 11:27 | DI.RAD.S_ITS ---
PROCEDURE: XR CHEST 2V INDICATIONS: Left chest pain, h/o of pneumonia. TECHNIQUE: 2 views of the chest were acquired. COMPARISON: [facility], CR, XR CHEST 2V, 02/18/2019, 13:01. FINDINGS: Surgical changes and devices: None. Lungs and pleura: Mild areas of increased density are identified at the lung bases, which have a similar appearance to the previous exam and may represent eventration of the diaphragm. No large effusion or pneumothorax is evident. Mediastinum: Mediastinal contours are normal. Heart size is normal. Bones and chest wall: No suspicious bony abnormalities. Soft tissues appear unremarkable. IMPRESSION: Unchanged bibasilar densities. Please consider CT of the chest for better characterization. Dictated by: Carmelo Sheldon M.D. on 02/21/2019 at 10:45 Approved by: Carmelo Sheldon M.D. on 02/21/2019 at 10:52
[2019-02-21 11:28] VITALS: BP 139/117; PULSE 78; RESP 26; O2SAT 97
[2019-02-21] MEDS: ALBUTEROL/IPRATROPIUM 3 ML AMPUL INH (11:45)
[2019-02-21 11:47] VITALS: PULSE 76; RESP 20; O2SAT 97
[2019-02-21 11:57] LABS: Add Manual Diff / Slide Review NO; Basophils Absolute Auto 100 /uL (0-100); Basophils Percent Auto 0.8 % (0-2); Eosinophils Absolute Auto 200 /uL (0-450); Hematocrit 38.9 % (41-53); Hemoglobin 13.7 g/dL (13.5-17.5); Lymphocytes Absolute Auto 2000 /uL (1100-4500); Lymphocytes Percent Auto 21.9 % (25-40); Mean Corpuscular HGB Conc 35.2 % (30-36); Mean Corpuscular Hemoglobin 28.4 PG (26-34); Mean Corpuscular Volume 80.8 fL (80-100); Monocytes Absolute Auto 700 /uL (0-900); Monocytes Percent Auto 7.8 % (3-14); Neutrophils Absolute Auto 6200 /uL (1500-7000); Neutrophils Percent Auto 67.5 % (50-75); Platelet Count 311 X10^3/uL (150-400); Red Blood Cell Count 4.81 X10^6/uL (4.5-5.9); Red Cell Distribution Width 12.7 % (11.6-14.8); White Blood Cell Count 9.2 X10^3/uL (4.5-11.0)
[2019-02-21] MEDS: HYDROCODONE/ACET 5/325 TABLET 2 TAB PO (11:59)
[2019-02-21 12:08] LABS: Alanine Aminotransferase 33 IU/L (21-72); Alkaline Phosphatase 102 U/L (38-126); Aspartate Aminotransferase 23 IU/L (17-59); BUN Creatinine Ratio 18.9 (6-22); Bilirubin Total 0.4 mg/dL (0.2-1.3); Blood Urea Nitrogen 17 mg/dL (9-20); Calcium 9.5 mg/dL (8.4-10.2); Carbon Dioxide 26 mmol/L (22-32); Chloride 103 mmol/L (98-107); Creatine Kinase 38 U/L (55-170); Estimated Glomerular Filt Rate > 60.0 mL/min (>60); Globulin 3.9 g/dL (1.7-4.1); Glucose 93 mg/dL (70-100); HEMOLYSIS < 15 (0-50); Potassium 4.1 mmol/L (3.4-5.1); Sodium 139 mmol/L (137-145); Total Protein 7.9 g/dL (6.3-8.2)
[2019-02-21 12:19] LABS: Troponin I < 0.012 ng/mL (0.01-0.034)
[2019-02-21 12:32] VITALS: BP 141/92; PULSE 79; RESP 22; O2SAT 94
--- NOTE | 2019-02-21 12:39 | DI.CT.S_ITS ---
PROCEDURE: CT ANGIO CHEST PE PROTOCOL INDICATIONS: SOB, Chest pain, Decreased O2, inconclusive XRs TECHNIQUE: After the administration of intravenous contrast, 2 mm thick sections acquired from the pulmonary apices to the posterior costophrenic angles. 3-dimensional maximum intensity projection (MIP) coronal and sagittal reformats were then acquired through the thorax. For radiation dose reduction, the following was used: automated exposure control, adjustment of mA and/or kV according to patient size. COMPARISON: None. FINDINGS: Image quality: Diagnostic. Pulmonary arteries: Pulmonary arteries are normal in size, and demonstrate no intraluminal filling defects to suggest central pulmonary embolism. Lungs and pleura: Bibasilar pulmonary consolidation is identified. There is a small left basilar pleural effusion. A 1.3 x 1.1 cm nodule is evident within the posterior left lower lobe (image 61, series 5). No pneumothorax is evident. Mediastinum: Heart size is normal, without pericardial effusion. No mediastinal or hilar adenopathy. Thoracic aorta is normal in caliber and enhancement. Esophagus is normal in caliber, without hiatal hernia. Bones and chest wall: No suspicious bony lesions. Ribs and thoracic spine appear intact throughout. Thyroid gland is not enlarged or adequately evaluated. No axillary or supraclavicular adenopathy. Abdomen: Visualized upper abdominal solid organs appear normal in the early arterial phase of enhancement. IMPRESSION: 1. No evidence of pulmonary emboli. 2. Bibasilar consolidation most likely represents a combination of atelectasis and pneumonia. 3. Small left-sided pleural effusion. 4. Left lower lobe pulmonary nodule. Six-month followup CT of the chest is recommended to evaluate for interval change. Dictated by: Carmelo Sheldon M.D. on 02/21/2019 at 11:59 Approved by: Carmelo Sheldon M.D. on 02/21/2019 at 12:07
[2019-02-21] MEDS: SODIUM CHLORIDE 0.9% 1,000 ML 1000 ML IV (13:12)
[2019-02-21 13:33] VITALS: BP 151/88; PULSE 79; RESP 24; O2SAT 95
== END 2019-02-21 14:20 | disposition home or self-care (01) ==
PROVIDERS: Emergency Provider Nurse Practitioner
DX: J90 Pleural effusion, not elsewhere classified (principal); R91.1 Solitary pulmonary nodule; M62.838 Other muscle spasm; J69.0 Pneumonitis due to inhalation of food and vomit
CPT/HCPCS: 36415; 71046; 71275; 80053; 82550; 84484; 85025; 93005; 94640; 96360; 99283; 99285; Q9967

== ENCOUNTER 2021-12-16 13:53 | Emergency (ER) | payer OTHER, SELFPAY ==
[2021-12-16 14:01] VITALS: BP 167/94; PULSE 98; RESP 18; TEMP 37; O2SAT 96; BMI 33.0
--- NOTE | 2021-12-16 14:04 | DI.RAD.S_ITS ---
PROCEDURE: XR ANKLE LT MIN 3V INDICATIONS: Left heel/ankle injury TECHNIQUE: 3 views of the ankle were acquired. COMPARISON: None. FINDINGS: Bones: No fractures or dislocations. Ankle mortise is normally aligned. Well-defined plantar and dorsal calcaneal enthesophytes are seen. No suspicious bony lesions. Soft tissues: No tibiotalar joint effusion. Achilles tendon appears normal. IMPRESSION: No acute ankle fracture or dislocation. Ankle mortise is congruent. Dictated by: Sukhjinder Youssef M.D. on 12/16/2021 at 14:30 Approved by: Sukhjinder Youssef M.D. on 12/16/2021 at 14:35
--- NOTE | 2021-12-16 14:26 | ED_ITS ---
HPI - Extremity Injury (Lower) <IMMANUEL Ross - Last Filed: 12/16/21 19:37> General Chief Complaint: Extremity Injury, Lower Stated Complaint: Left heel and ankle injury Time Seen by Provider: 12/16/21 14:25 Source: patient Mode of arrival: Wheelchair History of Present Illness HPI Narrative: This is a 46-year-old male who presents to the emergency department after a work related injury where a long board fell down due to the wind striking patient in back of his left ankle over the Achilles tendon. He endorses significant tenderness over the distal Achilles tendon attachment area over his calcaneus. He denies any plantar calcaneal pain, endorses that he can bear weight although it is painful. Denies any range of motion deficit, states it is most tender to palpation and moving it is not quite as painful. Patient denies any open wound, denies any weakness in his left leg. Denies any sensation changes to his foot other than some mild numbness where it is swollen, bruised and painful over his heel. Patient denies any other injuries, denies any pain in his knee, endorses mild anterior ankle pain as well. Related Data Previous Rx's Medication Instructions Recorded methocarbamol 500 mg tablet 500 mg PO TID Muscle Spasms #10 02/16/19 tabs azithromycin 250 mg tablet See Rx Instructions PO .COMPLEX #6 02/18/19 tabs hydrocodone 5 mg-acetaminophen 325 1 tab PO Q4-6H PRN pain #14 tabs 02/18/19 mg tablet (Raywick) hydroxyzine HCl 25 mg tablet 25 mg PO BEDTIME Muscle Spasms #14 02/21/19 tabs Allergies Allergy/AdvReac Type Severity Reaction Status Date / Time codeine Allergy Verified 02/18/19 12:41 Review of Systems <IMMANUEL Ross - Last Filed: 12/16/21 19:37> Review of Systems Narrative: General: denies fever, chills Head/Neck: denies headache, neck pain Eyes: denies visual changes, eye pain Cardio: denies chest pain, palpitations Respiratory: denies shortness of breath, cough GI: denies abdominal pain, nausea, vomiting, or diarrhea : denies dysuria, hematuria or flank pain MSK: denies new joint pain, muscle weakness or swelling, endorses right lower extremity heel pain Skin: denies rash, itching or wound, endorses ecchymosis over his left calcaneus Neuro: denies numbness, tingling, dizziness Patient History <IMMANUEL Ross - Last Filed: 12/16/21 19:37> Medical History (Updated 12/31/21 @ 00:01 by ) No significant medical problems Social History Smoking Status: Never smoker Smoking Status: Never smoker alcohol intake frequency: a few times a week Substance Use Type: marijuana Exam <IMMANUEL Ross - Last Filed: 12/16/21 19:37> Narrative Exam Narrative: Independently reviewed vitals signs and nursing notes. General: Awake, alert, nontoxic, no cardiorespiratory distress Head/Neck: Atraumatic, neck supple Eyes: EOMI, conjunctiva normal Nose: nares patent, no rhinorrhea Mouth/Throat: moist mucus membranes, posterior pharynx without erythema or lesion Cardio: Regular rate and rhythm, no peripheral edema Respiratory: respirations unlabored without wheezing, stridor, or rales. No retractions, hypoxia or tachypnea GI: Abdomen soft, nontender to palpation x4 quadrants, no guarding or rebound tenderness MSK: Moves all extremities, neurovascularly intact, range of motion without deficit, left foot PT and DP pulses are 2+, mild tenderness over a CFL, no tenderness over CFL or bilateral malleoli, tenderness over distal Achilles tendon, no tenderness over proximal, tendon is palpable from his calcaneus to the distal gastrocnemius although tender. Dorsiflexion and plantar extension are both intact and equal bilaterally without deficit Skin: Normal capillary refill, no rash, ecchymosis over the calcaneus without significant edema Neuro: Normal speech and cognition, normal gait Initial Vital Signs Initial Vital Signs: Vital Signs Temperature 98.6 F 12/16/21 14:01 Pulse Rate 98 H 12/16/21 14:01 Respiratory Rate 18 12/16/21 14:01 Blood Pressure 167/94 H 12/16/21 14:01 Pulse Oximetry 96 12/16/21 14:01 Oxygen Delivery Method 12/16/21 14:01 <Rajesh Hopkins MD - Last Filed: 01/03/22 11:48> Initial Vital Signs Initial Vital Signs: Vital Signs Temperature 98.6 F 12/16/21 14:01 Pulse Rate 98 H 12/16/21 14:01 Respiratory Rate 18 12/16/21 14:01 Blood Pressure 167/94 H 12/16/21 14:01 Pulse Oximetry 96 12/16/21 14:01 Oxygen Delivery Method 12/16/21 14:01 Procedures <IMMANUEL Ross - Last Filed: 12/16/21 19:37> Orthopedic Splinting/Casting Injury #1: Lower Extremity Injury Location: ankle Lower Extremity Immobilizer: Eduardo wrap Post splinting neuro exam: intact and no change Post splinting vascular exam: intact Course <IMMANUEL Ross - Last Filed: 12/16/21 19:37> Orders Ordered: ED Orders 12/16/21 14:04 XR ankle LT min 3V Stat Vital Signs Vital signs: Vital Signs - 8 hr 12/16/21 14:01 Temperature 98.6 F Pulse Rate 98 H Respiratory Rate 18 Blood Pressure 167/94 H Pulse Oximetry 96 Oxygen Delivery Method Room Air <Rajesh Hopkins MD - Last Filed: 01/03/22 11:48> Orders Ordered: ED Orders 12/16/21 14:04 XR ankle LT min 3V Stat Vital Signs Vital signs: Vital Signs - 8 hr 12/16/21 14:01 Temperature 98.6 F Pulse Rate 98 H Respiratory Rate 18 Blood Pressure 167/94 H Pulse Oximetry 96 Oxygen Delivery Method Room Air MDM - Extremity Injury (Lower) <IMMANUEL Ross - Last Filed: 12/16/21 19:37> Imaging Data Extremity x-ray #1: Radiologist's Impression: PROCEDURE:? XR ANKLE LT MIN 3V ? INDICATIONS:? Left heel/ankle injury ? TECHNIQUE:? 3 views of the ankle were acquired.? ? COMPARISON:? None. ? FINDINGS:? ? Bones:? No fractures or dislocations.? Ankle mortise is normally aligned.? Well- defined plantar and dorsal calcaneal enthesophytes are seen.? No suspicious bony lesions.? ? Soft tissues:? No tibiotalar joint effusion.? Achilles tendon appears normal.? ? ? IMPRESSION:? No acute ankle fracture or dislocation.? Ankle mortise is congruent. ?? ? Dictated by: Sukhjinder Youssef M.D. on 12/16/2021 at 14:30 ? ? Approved by: Sukhjinder Youssef M.D. on 12/16/2021 at 14:35 ? [facility] Narrative Medical decision making narrative: This is a 46-year-old male who presents the emergency department with a work related injury after a piece of lumbar fell down in the wind striking him in the back of his left ankle over his distal Achilles tendon. On exam, patient has significant tenderness over this area but his Achilles tendon was palpable and dorsiflexion and plantar extension were intact without deficit. X-ray of his left ankle shows no acute fracture or dislocation, mortise is congruent without suspicious bony lesions, Achilles tendon appeared normal without tibiotalar joint effusion. Patient is weight-bearing, denies any weakness in his lower extremity, has a limp in this leg due to pain. He was given Toradol in the emergency department, denied need for other pain medication. [id number]. Encourage patient to follow-up with [facility] if it does not improve over the next 1-2 weeks, did not splint patient but did apply a 3 in Eduardo wrap for compression which patient reports as feeling more comfortable afterwards. Patient reports having crutches at home and declined them at this time. He is weight-bearing as tolerated. Patient is appropriate and amenable to discharge home. Vital signs are stable on repeat examination is unremarkable. Patient has been informed of results. Patient has been given strict return to ER precautions for any new or worsening symptoms. Patient understands to follow up closely with outpatient providers as instructed. Patient understands plan and agrees to discharge home. All questions and concerns answered at this time. Discharge Plan Departure Patient Disposition: Home Clinical Impression: Work related injury, Contusion of left lower extremity Instructions: Ankle Sprain Activity Restrictions/Additional Instructions: *You have been diagnosed with a contusion and blunt injury to your left heel and ankle without fracture of your calcaneus or rupture of your Achilles tendon. Please elevate, ice, take ibuprofen and Tylenol and weight bear as tolerated ov er the next few days. Please take the next three days off of work so that you can rest and elevate your heal. You can try topical diclofenac gel, this is the same as Voltaren, and/or lidocaine patches if it is exquisitely tender. I am sorry this will take at least a week to heal, follow-up with orthopedics if in two weeks you are no better. [id number]. *What to do: *Please continue to take your regular medications as directed. [ ] New medication prescriptions sent to your pharmacy: [ ] [ ] New medication written as a paper prescription [x ] No new medications given *Please follow up with your primary care provider in 2-3 days, call for an appointment. Let them know you were seen in the Emergency Department and that we asked that you be seen for follow-up. We will electronically transmit a record of today's note if your PCP is in our system *If you do not have a primary care provider please contact [phone] to [facility] with one of the [facility] primary care providers. *Return to Emergency Department if you should have any new, worsening or concerning symptoms, such as [fever greater than 101F, chills, worsening pain, persistent vomiting or other bothersome symptoms] Prescriptions: No Action azithromycin 250 mg tablet See Rx Instructions .ROUTE .COMPLEX Qty: 6 0RF Rx Instructions: take 500 mg today (day 1), then 250 mg for 4 days (days 2-5) hydrocodone-acetaminophen [Raywick] 5-325 mg tablet 1 tab PO Q4-6H PRN (Reason: pain) Qty: 14 0RF hydroxyzine HCl 25 mg tablet 25 mg PO BEDTIME Qty: 14 0RF methocarbamol 500 mg tablet 500 mg PO TID Qty: 10 0RF Referrals: [facility] [Provider Group] Visit Report Forms: Patient Portal/API <Rajesh Hopkins MD - Last Filed: 01/03/22 11:48> [facility] Attending Rad Attestation: I WAS IMMEDIATELY AVAILABLE FOR CONSULTATION OF THIS PATIENT WAS SEEN AND EVALUATED BY THE APC IN THE DEPARTMENT.
== END 2021-12-16 15:04 | disposition home or self-care (01) ==
PROVIDERS: Emergency Provider Nurse Practitioner Critical Care Medicine
DX: S80.12XA Contusion of left lower leg, initial encounter (principal); W18.00XA Striking against unspecified object with subsequent fall, initial encounter; Y99.0 Civilian activity done for income or pay
CPT/HCPCS: 73610; 99283